=== PATIENT | female | born 1990 | race Caucasian/White ===

== ENCOUNTER 2017-01-10 02:54 | Emergency (ER) | payer OTHER ==
[2017-01-10 03:06] VITALS: TEMP 98.6
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
[2017-01-10 05:05] VITALS: BP 140/98; PULSE 99; RESP 20; O2SAT 99
== END 2017-01-10 04:45 | disposition home or self-care (01) ==
DX: S00.83XA Contusion of other part of head, initial encounter (principal); F10.920 Alcohol use, unspecified with intoxication, uncomplicated; R00.0 Tachycardia, unspecified; V49.09XA Driver injured in collision with other motor vehicles in nontraffic accident, initial encounter; Y92.89 Other specified places as the place of occurrence of the external cause; Y99.8 Other external cause status; Y93.89 Activity, other specified